=== PATIENT | female | born 1980 | race Caucasian/White ===

== ENCOUNTER 2018-01-23 14:18 | Emergency (ER) | payer MEDICAID ==
[~2018-01-23] VITALS: Ht 170.2 cm; Wt 145.1 kg
[2018-01-23 14:20] VITALS: BP_SYST 148
[2018-01-23 16:15] VITALS: BP_SYST 146
== END 2018-01-23 16:15 | disposition home or self-care (01) ==
LOC: SED 14:18
DX: J40 Bronchitis, not specified as acute or chronic (principal); R03.0 Elevated blood-pressure reading, without diagnosis of hypertension; Z88.0 Allergy status to penicillin
CPT/HCPCS: 71045; 99283

== ENCOUNTER 2018-07-06 15:39 | Emergency (ER) | payer MEDICAID ==
[~2018-07-06] VITALS: Ht 170.2 cm; Wt 136.1 kg
[2018-07-06 15:41] VITALS: BP_SYST 180
[2018-07-06 20:59] VITALS: BP_SYST 167
[2018-07-06 22:04] LABS: CALCIUM 8.6 mg/dL (8.4-11.0); CREATININE 0.58 mg/dL (0.55-1.30); POTASSIUM 3.5 mmol/L (3.5-5.1)
[2018-07-06 22:09] LABS: ALBUMIN 3.2 g/dL (3.4-4.8); TOTAL BILIRUBIN 0.3 mg/dL (0.0-1.0)
[2018-07-06 22:24] LABS: HEMATOCRIT 35.1 % (36-48); HEMOGLOBIN 11.8 g/dL (12.0-16.0); MEAN CORPUSCULAR HEMOGLOBIN 28 pg (27-31); MEAN CORPUSCULAR HGB CONC 34 % (32-36); MEAN CORPUSCULAR VOLUME 84 fL (79.0-98.0); RED BLOOD CELL COUNT(AUTO) 4.18 MIL/uL (4.2-6.2); WHITE BLOOD COUNT (AUTO) 8.4 K/uL (4.8-10.8)
[2018-07-06 22:25] LABS: BASOPHILS # (AUTO) 0.1 K/uL (0.0-0.2); BASOPHILS % (AUTO) 0.8 % (0.0-2.0); EOSINOPHILS # (AUTO) 0.2 K/uL (0.0-0.4); EOSINOPHILS % (AUTO) 2.8 % (0.0-4.0); LYMPHOCYTES # (AUTO) 2.2 K/uL (1.0-5.5); LYMPHOCYTES % (AUTO) 25.9 % (20.5-51.5); MONOCYTES # (AUTO) 0.5 K/uL (0.0-1.0); MONOCYTES % (AUTO) 6.1 % (1.7-9.3); NEUTROPHILS # (AUTO) 5.4 K/uL (1.8-7.7); NEUTROPHILS % (AUTO) 64.4 % (40.0-70.0); PLATELET COUNT (AUTO) 279 K/uL (130-430); RED CELL DISTRIBUTION WIDTH 14.2 % (9.0-15.0)
== END 2018-07-06 23:16 | disposition home or self-care (01) ==
LOC: SED 15:39
DX: R51 Headache (principal); R03.0 Elevated blood-pressure reading, without diagnosis of hypertension; Z88.0 Allergy status to penicillin
CPT/HCPCS: 36415; 70450-TC; 80053; 81025; 85025; 99284

== ENCOUNTER 2018-07-27 13:44 | Emergency (ER) | payer MEDICAID ==
[~2018-07-27] VITALS: Ht 170.2 cm; Wt 149.7 kg
[2018-07-27 14:34] VITALS: BP_SYST 141
[2018-07-27 15:18] LABS: STREPTOCOCCUS A SCREEN (RAPID) NEGATIVE (NEGATIVE)
[2018-07-27 15:24] LABS: INFLUENZA A&B ANTIGEN SCREEN NEGATIVE FOR A & B (NEGATIVE)
[2018-07-27 15:50] VITALS: BP_SYST 138
== END 2018-07-27 15:50 | disposition home or self-care (01) ==
LOC: SED 13:44
DX: J06.9 Acute upper respiratory infection, unspecified (principal); R03.0 Elevated blood-pressure reading, without diagnosis of hypertension; Z88.0 Allergy status to penicillin
CPT/HCPCS: 36415; 86403; 86710; 87081; 99283

== ENCOUNTER 2019-02-03 14:43 | Emergency (ER) | payer MEDICAID ==
[~2019-02-03] VITALS: Ht 170.2 cm; Wt 158.8 kg
[2019-02-03 14:46] VITALS: BP_SYST 161
[2019-02-03] MEDS ORDERED: HYDROcodone/ACETAMIN 7.5-325 MG TAB PO ONE (15:00)
[2019-02-03] MEDS ORDERED: KETOROLAC TROMETHAMINE 60 MG/2 ML VIAL IM ONE (15:00)
[2019-02-03] MEDS ORDERED: DEXAMETHASONE SOD PHOSPHATE 10 MG/ML VIAL IM ONE (15:00)
[2019-02-03 16:00] VITALS: BP_SYST 143
== END 2019-02-03 16:00 | disposition home or self-care (01) ==
LOC: SED 14:43
DX: M54.30 Sciatica, unspecified side (principal); R03.0 Elevated blood-pressure reading, without diagnosis of hypertension; E66.01 Morbid (severe) obesity due to excess calories; Z68.43 Body mass index [BMI] 50.0-59.9, adult; Z88.0 Allergy status to penicillin
CPT/HCPCS: 81025; 96372; 99283; J1100; J1885

== ENCOUNTER 2019-02-23 15:24 | Emergency (ER) | payer MEDICAID ==
[~2019-02-23] VITALS: Ht 170.2 cm; Wt 158.8 kg
[2019-02-23 15:31] VITALS: BP_SYST 153
[2019-02-23 16:15] VITALS: BP_SYST 145
== END 2019-02-23 16:09 | disposition home or self-care (01) ==
LOC: SED 15:24
DX: J06.9 Acute upper respiratory infection, unspecified (principal); R03.0 Elevated blood-pressure reading, without diagnosis of hypertension; Z88.0 Allergy status to penicillin
CPT/HCPCS: 99283

== ENCOUNTER 2019-07-17 16:47 | Emergency (ER) | payer MEDICAID ==
[~2019-07-17] VITALS: Ht 170.2 cm; Wt 111.6 kg
[2019-07-17 17:01] VITALS: BP_SYST 156
--- NOTE | 2019-07-17 17:07 | NUR ---
Patient triaged and placed in waiting room. VSS and patient appears in no acute distress at this time. Accompanied by self, awaiting available bed, and MD notified of need for MSE.
--- NOTE | 2019-07-17 19:42 | NUR ---
Patient to ER bed 4 to gown for evaluation. Side rails up. Report given to KAYY Spears.
--- NOTE | 2019-07-17 19:43 | NUR ---
Patient did not answer when called. Will call once more.
--- NOTE | 2019-07-17 19:50 | NUR ---
Patient again called to be seen, patient is not in waiting room or waiting room restroom. Patient LWBS.
== END 2019-07-17 19:50 | disposition left against medical advice (07) ==
LOC: SED 16:47
DX: M25.552 Pain in left hip (principal); Z53.21 Procedure and treatment not carried out due to patient leaving prior to being seen by health care provider

== ENCOUNTER 2019-09-11 19:13 | Emergency (ER) | payer MEDICAID ==
[~2019-09-11] VITALS: Ht 170.2 cm; Wt 156.9 kg
[2019-09-11 19:27] VITALS: BP_SYST 197
[2019-09-11] MEDS ORDERED: LORazepam 2 MG/ML VIAL IM ONE (20:15)
[2019-09-11 21:55] VITALS: BP_SYST 133
== END 2019-09-11 21:55 | disposition home or self-care (01) ==
LOC: SED 19:13
DX: F41.9 Anxiety disorder, unspecified (principal); F19.10 Other psychoactive substance abuse, uncomplicated
CPT/HCPCS: 81025; 96374; 99283; J2060

== ENCOUNTER 2019-12-15 18:48 | Emergency (ER) | payer MEDICAID ==
[~2019-12-15] VITALS: Ht 170.2 cm; Wt 156.9 kg
[2019-12-15 19:11] VITALS: BP_SYST 164
[2019-12-15 21:00] LABS: BASOPHILS # (AUTO) 0.1 K/uL (0.0-0.2); BASOPHILS % (AUTO) 0.9 % (0.0-2.0); EOSINOPHILS # (AUTO) 0.1 K/uL (0.0-0.4); EOSINOPHILS % (AUTO) 1.6 % (0.0-4.0); HEMATOCRIT 40.3 % (36-48); HEMOGLOBIN 13.5 g/dL (12.0-16.0); LYMPHOCYTES # (AUTO) 2.7 K/uL (1.0-5.5); LYMPHOCYTES % (AUTO) 30.3 % (20.5-51.5); MEAN CORPUSCULAR HEMOGLOBIN 29 pg (27-31); MEAN CORPUSCULAR HGB CONC 33 % (32-36); MEAN CORPUSCULAR VOLUME 87 fL (79.0-98.0); MONOCYTES # (AUTO) 0.6 K/uL (0.0-1.0); MONOCYTES % (AUTO) 7.3 % (1.7-9.3); NEUTROPHILS # (AUTO) 5.4 K/uL (1.8-7.7); NEUTROPHILS % (AUTO) 59.9 % (40.0-70.0); PLATELET COUNT (AUTO) 257 K/uL (130-430); RED BLOOD CELL COUNT(AUTO) 4.63 MIL/uL (4.2-6.2); RED CELL DISTRIBUTION WIDTH 13.7 % (9.0-15.0); WHITE BLOOD COUNT (AUTO) 8.9 K/uL (4.8-10.8)
[2019-12-15 21:36] LABS: BILIRUBIN,URINE NEGATIVE (NEGATIVE); CLARITY/URINE CLEAR (CLEAR); GLUCOSE,URINE NEGATIVE (NEGATIVE); KETONES,URINE NEGATIVE (NEGATIVE); LEUKOCYTE ESTERASE ,URINE NEGATIVE (NEGATIVE); NITRITE, URINE NEGATIVE (NEGATIVE); PH,URINE 6.5 (5.0-8.0); PROTEIN URINE NEGATIVE (NEGATIVE); UROBILINOGEN,URINE 0.2 (0.2-1.0)
[2019-12-15 21:36] LABS: CREATININE 0.69 mg/dL (0.55-1.30)
[2019-12-15 21:44] LABS: BLOOD, URINE TRACE (NEGATIVE); COLOR,URINE STRAW (YELLOW)
[2019-12-15 21:47] LABS: BACTERIA,URINE RARE /HPF (None Seen); RBC,URINE 0-3 /HPF (0-3); WBC,URINE NONE SEEN /HPF (0-3)
[2019-12-15 21:48] LABS: MUCUS,URINE None Seen /LPF (None Seen)
[2019-12-15 21:57] VITALS: BP_SYST 158
== END 2019-12-15 21:58 | disposition home or self-care (01) ==
LOC: SED 18:48
DX: R07.89 Other chest pain (principal); Z88.0 Allergy status to penicillin
CPT/HCPCS: 36415; 71045; 80048; 81000-TC; 81025; 84484; 85025; 93005; 99285

== ENCOUNTER 2020-04-07 19:17 | Emergency (ER) | payer MEDICAID ==
[~2020-04-07] VITALS: Ht 170.2 cm; Wt 142.9 kg
[2020-04-07 19:17] VITALS: BP_SYST 140
[2020-04-07] MEDS ORDERED: ACETAMINOPHEN 500 MG TABLET PO ONE (20:30)
[2020-04-07 22:24] VITALS: BP_SYST 140
== END 2020-04-07 22:24 | disposition home or self-care (01) ==
LOC: SED 19:17
DX: R07.9 Chest pain, unspecified (principal); F41.9 Anxiety disorder, unspecified; E66.9 Obesity, unspecified; I10 Essential (primary) hypertension
CPT/HCPCS: 71045; 81002; 81025; 93005; 99283

== ENCOUNTER 2020-04-13 16:19 | Emergency (ER) | payer MEDICAID ==
[~2020-04-13] VITALS: Ht 170.2 cm; Wt 142.9 kg
[2020-04-13 16:20] VITALS: BP_SYST 152
[2020-04-13] MEDS ORDERED: KETOROLAC TROMETHAMINE 60 MG/2 ML VIAL IM ONE (17:00)
[2020-04-13] MEDS ORDERED: PROCHLORPERAZINE EDISYLATE 10 MG/2 ML VIAL IM ONE (17:00)
[2020-04-13 19:05] VITALS: BP_SYST 152
== END 2020-04-13 19:05 | disposition home or self-care (01) ==
LOC: SED 16:19
DX: R51.9 Headache, unspecified (principal); F41.0 Panic disorder [episodic paroxysmal anxiety]; Z88.0 Allergy status to penicillin
CPT/HCPCS: 70450-TC; 76376; 81002; 81025; 96372; 99284

== ENCOUNTER 2020-05-07 09:56 | Emergency (ER) | payer MEDICAID ==
[~2020-05-07] VITALS: Ht 170.2 cm; Wt 148.3 kg
--- NOTE | 2020-05-07 09:57 | NUR ---
Patient triaged and placed in waiting room. VSS and patient appears in no acute distress at this time. Accompanied by self , awaiting available bed, and MD notified of need for MSE.
[2020-05-07 10:05] VITALS: BP_SYST 157
--- NOTE | 2020-05-07 10:20 | NUR ---
Pt brought by self, A&Ox4, pt presents to ER with mild chest pain, anxiety, messi arm pain, skin pink and warm, cap refill <3, VSS, respirations even and unlabored.
[2020-05-07 12:03] LABS: BASOPHILS % (AUTO) 0.6 % (0.0-2.0); EOSINOPHILS % (AUTO) 0.6 % (0.0-4.0); HEMATOCRIT 39.9 % (36-48); HEMOGLOBIN 13.5 g/dL (12.0-16.0); LYMPHOCYTES # (AUTO) 1.2 K/uL (1.0-5.5); LYMPHOCYTES % (AUTO) 16.8 % (20.5-51.5); MEAN CORPUSCULAR HEMOGLOBIN 30 pg (27-31); MEAN CORPUSCULAR HGB CONC 34 % (32-36); MEAN CORPUSCULAR VOLUME 88 fL (79.0-98.0); MONOCYTES # (AUTO) 0.3 K/uL (0.0-1.0); MONOCYTES % (AUTO) 4.9 % (1.7-9.3); NEUTROPHILS # (AUTO) 5.3 K/uL (1.8-7.7); NEUTROPHILS % (AUTO) 77.1 % (40.0-70.0); PLATELET COUNT (AUTO) 264 K/uL (130-430); RED BLOOD CELL COUNT(AUTO) 4.55 MIL/uL (4.2-6.2); WHITE BLOOD COUNT (AUTO) 6.9 K/uL (4.8-10.8)
[2020-05-07 12:27] LABS: ANION GAP 9 (5-15); CALCIUM 8.8 mg/dL (8.4-11.0); CHLORIDE 105 mmol/L (98-107); CREATININE 0.61 mg/dL (0.55-1.30); GLUCOSE 102 mg/dL (70-99); POTASSIUM 3.9 mmol/L (3.5-5.1); SODIUM SERUM 141 mmol/L (136-145); UREA NITROGEN, BLOOD 7 mg/dL (8-21)
--- NOTE | 2020-05-07 12:38 | NUR ---
Dr Friedman evaluating patient in the triage room
[2020-05-07 12:45] LABS: LIPASE 89 U/L (73-393)
[2020-05-07 13:23] LABS: GFR AFRICAN AMERICAN 142 mL/min (>90)
[2020-05-07 13:57] VITALS: BP_SYST 157
--- NOTE | 2020-05-07 14:10 | NUR ---
Patient given written and verbal discharge instructions and verbalizes understanding. ER MD discussed with patient the results and treatment provided. Patient in stable condition. ID arm band removed. IV catheter removed intact and dressing applied, no active bleeding. Rx of Famotidine and Maalox given. Patient educated on pain management and to follow up with PMD. Pain Scale 2/10 . Opportunity for questions provided and answered. Medication side effect fact sheet provided.
== END 2020-05-07 13:57 | disposition home or self-care (01) ==
LOC: SED 09:56
DX: R07.89 Other chest pain (principal); R10.13 Epigastric pain; F41.0 Panic disorder [episodic paroxysmal anxiety]; Z88.0 Allergy status to penicillin
CPT/HCPCS: 36415; 71045; 80048; 81025; 83690-TC; 83880; 84484; 85025; 93005; 99285

== ENCOUNTER 2020-05-14 20:41 | Emergency (ER) | payer MEDICAID ==
[~2020-05-14] VITALS: Ht 170.2 cm; Wt 146.5 kg
[2020-05-14 20:50] VITALS: BP_SYST 169
[2020-05-14 23:34] LABS: EOSINOPHILS # (AUTO) 0.1 K/uL (0.0-0.4); WHITE BLOOD COUNT (AUTO) 9.9 K/uL (4.8-10.8)
[2020-05-14 23:38] LABS: BASOPHILS # (AUTO) 0.1 K/uL (0.0-0.2); BASOPHILS % (AUTO) 0.9 % (0.0-2.0); EOSINOPHILS % (AUTO) 1.1 % (0.0-4.0); HEMATOCRIT 37.8 % (36-48); LYMPHOCYTES # (AUTO) 2.2 K/uL (1.0-5.5); LYMPHOCYTES % (AUTO) 22.1 % (20.5-51.5); MEAN CORPUSCULAR HEMOGLOBIN 30 pg (27-31); MEAN CORPUSCULAR HGB CONC 34 % (32-36); MEAN CORPUSCULAR VOLUME 88 fL (79.0-98.0); MONOCYTES # (AUTO) 0.7 K/uL (0.0-1.0); MONOCYTES % (AUTO) 6.8 % (1.7-9.3); NEUTROPHILS # (AUTO) 6.8 K/uL (1.8-7.7); NEUTROPHILS % (AUTO) 69.1 % (40.0-70.0); PLATELET COUNT (AUTO) 260 K/uL (130-430); RED BLOOD CELL COUNT(AUTO) 4.28 MIL/uL (4.2-6.2); RED CELL DISTRIBUTION WIDTH 13.4 % (9.0-15.0)
[2020-05-14 23:50] LABS: CALCIUM 8.7 mg/dL (8.4-11.0); CREATININE 0.8 mg/dL (0.55-1.30)
[2020-05-14 23:56] LABS: ALBUMIN 3.6 g/dL (3.4-4.8); TOTAL BILIRUBIN 0.1 mg/dL (0.0-1.0)
[2020-05-15 01:02] VITALS: BP_SYST 160
== END 2020-05-15 01:02 | disposition home or self-care (01) ==
LOC: SED 20:41
DX: R07.9 Chest pain, unspecified (principal); Z88.0 Allergy status to penicillin
CPT/HCPCS: 36415; 71045; 80053; 81025; 82550-TC; 84484; 84703; 85025; 85379; 93005; 99285

== ENCOUNTER 2021-04-25 09:49 | Emergency (ER) | payer MEDICAID ==
[~2021-04-25] VITALS: Ht 170.2 cm; Wt 142.9 kg
[2021-04-25 09:55] VITALS: BP_SYST 133
--- NOTE | 2021-04-25 09:55 | NUR ---
Pt. came in with concerns of UTI stated about 1 week ago had abd. pain and increase urine frequency so began drinking cranberry juice but has has no improvement and now also has increase in pain to left side and bilateral flank pain that is intermittent, currently has no pain.
--- NOTE | 2021-04-25 09:55 | NUR ---
Patient to ER bed 8 to gown for evaluation. Side rails up. Assumed care.
--- NOTE | 2021-04-25 10:42 | NUR ---
ER at bedside examining patient.
[2021-04-25 11:11] LABS: BILIRUBIN,URINE NEGATIVE (NEGATIVE); BLOOD, URINE NEGATIVE (NEGATIVE); CLARITY/URINE CLEAR (CLEAR); COLOR,URINE YELLOW (YELLOW); GLUCOSE,URINE NEGATIVE (NEGATIVE); KETONES,URINE NEGATIVE (NEGATIVE); LEUKOCYTE ESTERASE ,URINE NEGATIVE (NEGATIVE); NITRITE, URINE NEGATIVE (NEGATIVE); PROTEIN URINE NEGATIVE (NEGATIVE); UROBILINOGEN,URINE 0.2 (0.2-1.0)
[2021-04-25] MEDS ORDERED: PHENAZOPYRIDINE HCL 100 MG TABLET PO ONE (11:45)
[2021-04-25] MEDS ORDERED: SULFAMETHOXAZOLE/TRIMETHOPR DS 1 TABLET PO ONE (11:45)
[2021-04-25] MEDS ORDERED: SULF1TAB48 PO (11:50)
[2021-04-25] MEDS ORDERED: PHEN-726 PO (11:50)
--- NOTE | 2021-04-25 12:25 | NUR ---
Patient given written and verbal discharge instructions and verbalizes understanding. Dr. Hernández discussed with patient the results and treatment provided. Patient in stable condition. ID arm band removed. Rx of Bactrim and pyridium given. Patient educated on pain management and to follow up with PMD. Pain Scale 0. Opportunity for questions provided and answered. Medication side effect fact sheet provided.
[2021-04-25 12:27] VITALS: BP_SYST 138
== END 2021-04-25 12:25 | disposition home or self-care (01) ==
LOC: SED 09:49
DX: N39.0 Urinary tract infection, site not specified (principal)
CPT/HCPCS: 81003; 87086; 99283